=== PATIENT | female | born 1970 | race Hispanic/Latino ===

== ENCOUNTER 2019-09-09 03:46 | Emergency (ER) | payer OTHER ==
[2019-09-09 04:22] LABS: BASOPHILS % (AUTO) 0.9 % (0.0-5.0); EOSINOPHILS % (AUTO) 3.1 % (0.0-8.0); HEMATOCRIT 40.3 % (36-48); LYMPHOCYTES % (AUTO) 48.4 % (21.0-51.0); MEAN CORPUSCULAR HEMOGLOBIN 31.1 pg (27.0-33.0); MEAN CORPUSCULAR HGB CONC 33.8 g/dL (32.0-36.0); MEAN CORPUSCULAR VOLUME 92.1 fL (79-99); MONOCYTES % (AUTO) 8.8 % (3.0-13.0); NEUTROPHILS % (AUTO) 38.8 % (40.0-77.0); PLATELET COUNT (AUTO) 251 K/uL (130-400); RED BLOOD CELL COUNT(AUTO) 4.38 MIL/uL (4.00-5.50); RED CELL DISTRIBUTION WIDTH 13.1 % (11.0-15.5); WHITE BLOOD COUNT (AUTO) 7.6 K/uL (4.8-10.8)
[2019-09-09 04:32] LABS: CREATININE 0.9 mg/dL (0.5-1.5)
[2019-09-09 04:37] LABS: BILIRUBIN,TOTAL 0.1 mg/dL (0.2-1.0); INR 0.94 (0.85-1.15); PARTIAL THROMBOPLASTIN TIME 31.6 SEC (26.3-35.5); PROTHROMBIN TIME 9.9 SEC (9.6-11.6); TOTAL PROTEIN, SERUM 8.3 g/dL (6.0-8.3)
[2019-09-09 05:22] LABS: APPEARANCE,URINE Clear (CLEAR); BILIRUBIN,URINE Negative (NEGATIVE); COLOR,URINE Yellow (YELLOW); GLUCOSE, URINE (UA) Negative (NEGATIVE); KETONES,URINE Negative (NEGATIVE); LEUKOCYTE ESTERASE ,URINE Small (NEGATIVE); NITRATE,URINE Negative (NEGATIVE); OCCULT BLOOD,URINE Moderate (NEGATIVE); PH,URINE 5.5 (5.0-8.0); PROTEIN,URINE Negative (NEGATIVE); UROBILINOGEN,URINE 0.2 mg/dL (0.2-1.0)
[2019-09-09 06:33] LABS: BACTERIA,URINE Few /HPF (None Seen); YEAST,URINE BUDDING Few /HPF (None Seen)
== END 2019-09-09 08:01 | disposition home or self-care (01) ==
LOC: EDH 03:46
DX: R55 Syncope and collapse (principal); R00.2 Palpitations; R42 Dizziness and giddiness; M54.2 Cervicalgia; I10 Essential (primary) hypertension; Z90.49 Acquired absence of other specified parts of digestive tract
CPT/HCPCS: 36415; 70450; 71046; 72125; 80053; 81001; 82550; 84484; 85025; 85610; 85730; 93005

== ENCOUNTER 2023-11-20 20:42 | Emergency (ER) | payer BC ==
[~2023-11-20] VITALS: Ht 157.5 cm; Wt 70.3 kg
[~2023-11-20 20:42] MED LIST: ASPI-1005 PO; ATOR20TA65 PO; CLOP-31 PO; DOXY100T2 PO; FAMO20TA8 PO
[2023-11-20 20:44] VITALS: BP 149/89; PULSE 78; RESP 20
[2023-11-20] MEDS ORDERED: CLIN-141 PO (21:12)
[2023-11-20] MEDS ORDERED: IBUP-2077 PO (21:12)
[2023-11-20] MEDS: CLINDAMYCIN 150 MG CAP PO STA (21:13)
[2023-11-20] MEDS: IBUPROFEN 800 MG TAB PO ONE (21:14)
== END 2023-11-20 21:23 | disposition home or self-care (01) ==
LOC: EDH 20:42
DX: K02.9 Dental caries, unspecified (principal); R60.9 Edema, unspecified; I10 Essential (primary) hypertension; E11.9 Type 2 diabetes mellitus without complications; Z79.82 Long term (current) use of aspirin; Z79.899 Other long term (current) drug therapy; Z90.710 Acquired absence of both cervix and uterus; Z98.890 Other specified postprocedural states

== ENCOUNTER 2024-02-01 20:51 | Emergency (ER) | payer BC ==
[~2024-02-01] VITALS: Ht 162.6 cm; Wt 85.3 kg
[~2024-02-01 20:51] MED LIST changes: +CLIN-141 PO; +IBUP-2077 PO
[2024-02-01 23:10] LABS: BASOPHILS # (AUTO) 0.07 K/uL (0.00-0.20); BASOPHILS % (AUTO) 0.8 % (0.0-5.0); EOSINOPHILS % (AUTO) 4.5 % (0.0-8.0); HEMATOCRIT 36.4 % (36-48); IMMATURE GRANULOCYTE ABSOLUTE 0.04 K/uL (0-1); LYMPHOCYTES # (AUTO) 3.4 K/uL (1.0-4.8); LYMPHOCYTES % (AUTO) 38.9 % (21.0-51.0); MEAN CORPUSCULAR HEMOGLOBIN 30.8 pg (27.0-33.0); MEAN CORPUSCULAR HGB CONC 33.8 g/dL (32.0-36.0); MONOCYTES % (AUTO) 11.2 % (3.0-13.0); NEUTROPHILS # (AUTO) 3.9 K/uL (1.8-7.7); NEUTROPHILS % (AUTO) 44.1 % (40.0-77.0); PLATELET COUNT (AUTO) 232 K/uL (130-400); RED CELL DISTRIBUTION WIDTH 12.6 % (11.0-15.5); WHITE BLOOD COUNT (AUTO) 8.8 K/uL (4.8-10.8)
[2024-02-01 23:16] LABS: CREATININE 0.7 mg/dL (0.5-1.0); POTASSIUM 3.8 mmol/L (3.5-5.1)
[2024-02-01 23:21] LABS: ALBUMIN 3.9 g/dL (3.5-5.0); BILIRUBIN,TOTAL 0.2 mg/dL (0.2-1.0); TOTAL PROTEIN, SERUM 7.9 g/dL (6.0-8.3)
[2024-02-01 23:23] LABS: INR <= 0.93 (0.85-1.15); PROTHROMBIN TIME 10.3 SEC (9.6-11.6)
[2024-02-01 23:24] LABS: PARTIAL THROMBOPLASTIN TIME 34.5 SEC (26.3-35.5)
[2024-02-02] MEDS ORDERED: IBUP-1493 PO (01:22)
[2024-02-02] MEDS: KETOROLAC 30MG VIAL (30MG/ML) IVP ONE (01:25)
[2024-02-02] MEDS: METOCLOPRAMIDE 10 MG/2 ML VIAL IVP ONE (01:25)
[2024-02-02 02:26] VITALS: BP 136/66; PULSE 78; RESP 20; O2SAT 97
[2024-02-02] MEDS: DiphenhydrAMINE HCL 50 MG/ML VIAL IV ONE (02:28)
== END 2024-02-02 02:35 | disposition home or self-care (01) ==
LOC: EDH 20:51
DX: R42 Dizziness and giddiness (principal); R51.9 Headache, unspecified; I10 Essential (primary) hypertension; Z79.02 Long term (current) use of antithrombotics/antiplatelets; Z79.82 Long term (current) use of aspirin
CPT/HCPCS: 99284; 70450; 71045; 82550; 84484; 80053; 83880; 82140; 85025; 85378; 85610; 85730; 36415; 93005 ×2; 96374; 96375; J1200; J1885; J2765

== ENCOUNTER 2024-09-19 09:44 | Emergency (ER) | payer BC ==
[~2024-09-19] VITALS: Ht 165.1 cm; Wt 68.9 kg
[~2024-09-19 09:44] MED LIST changes: -ASPI-1005 PO; -CLIN-141 PO; -DOXY100T2 PO; +IBUP-1493 PO; -IBUP-2077 PO
[2024-09-19 10:09] LABS: BASOPHILS # (AUTO) 0.05 K/uL (0.00-0.20); BASOPHILS % (AUTO) 0.8 % (0.0-5.0); EOSINOPHILS # (AUTO) 0.22 K/uL (0.00-0.70); EOSINOPHILS % (AUTO) 3.6 % (0.0-8.0); HEMATOCRIT 40.5 % (36-48); IMMATURE GRANULOCYTE ABSOLUTE 0.02 K/uL (0-1); LYMPHOCYTES # (AUTO) 2.2 K/uL (1.0-4.8); LYMPHOCYTES % (AUTO) 35.8 % (21.0-51.0); MEAN CORPUSCULAR HEMOGLOBIN 30.2 pg (27.0-33.0); MEAN CORPUSCULAR HGB CONC 33.6 g/dL (32.0-36.0); MONOCYTES # (AUTO) 0.6 K/uL (0.1-1.0); MONOCYTES % (AUTO) 9.9 % (3.0-13.0); NEUTROPHILS % (AUTO) 49.6 % (40.0-77.0); PLATELET COUNT (AUTO) 282 K/uL (130-400); RED CELL DISTRIBUTION WIDTH 12.7 % (11.0-15.5); WHITE BLOOD COUNT (AUTO) 6.1 K/uL (4.8-10.8)
[2024-09-19 10:19] LABS: CREATININE 0.6 mg/dL (0.5-1.0); POTASSIUM 3.6 mmol/L (3.5-5.1)
[2024-09-19 10:29] LABS: BILIRUBIN,TOTAL 0.3 mg/dL (0.2-1.0); TOTAL PROTEIN, SERUM 8.1 g/dL (6.0-8.3)
[2024-09-19] MEDS ORDERED: NITROGLYCERIN 0.4 MG SL TAB SL PRN (10:30)
--- NOTE | 2024-09-19 10:33 | HMCIMG ---
CHEST 1VW HISTORY: Chest pain COMPARISON: 02/01/2024 FINDINGS: A frontal projection of the chest was obtained. No acute pulmonary infiltrates is seen. The heart is normal in size. Prominent interstitial markings are seen. Degenerative changes are seen. No evidence of aortic calcification is seen. IMPRESSION: 1. No acute pulmonary infiltrate is seen.
--- NOTE | 2024-09-19 10:34 | EKG ---
[facility] Test Date: 2024-09-19 Test Time: 09:53:07 Pat Name: CORNELL BHAT Department: ED Room: Gender: F Adaptive Physical Education Specialist: [id number] : 1970 Requested By: HANK HIDALGO Order Number: [id number] Reading MD: Teto Salas Measurements Intervals [place] Rate: 70 P: 25 MO: 143 QRS: 14 QRSD: 95 T: -11 QT: 416 QTc: 451 Interpretive Statements Sinus rhythm Borderline T abnormalities, diffuse leads Compared to ECG 02/01/2024 22:45:06 T-wave abnormality now present Electronically Signed On 09-19-2024 19:11:49 DATABASE DESIGNER by Teto Salas Please click the below link to view image of tracing.
--- NOTE | 2024-09-19 10:42 | ERN ---
ED Note History of Present Illness Stated Complaint: CP Chief Complaint: Chest Pain Time Seen by MD: 10:01 Dictation: Patient is a 55-year-old female with a history of diabetes type 2 hypertension hyperlipidemia and GERD who presents to the ED for chest pain. Patient states the chest pain started around 6:00 p.m. last night and has been intermittent in nature with some radiation to the back. Patient admits to having some weakness but denies any falls. Patient also states her blood pressure was very elevated last night with with reading in the 190s systolic. She took two amlodipine 5 mg last night which helped. Patient denies any dizziness, shortness of breath, numbness, tingling, or swelling in the legs. Patient states she has some cardiac history and at 1 point was on a Holter monitor but never followed up with Cardiology. Patient does not have a primary care physician and currently receives her dual anti-platelet therapy potassium supplements and cholesterol medications from [facility]. Allergies: Coded Allergies: No Known Allergies (Unverified Allergy, Unknown, 05/28/23) Home Meds Active Scripts Ibuprofen (Motrin/Advil) 800 Mg Tab, 800 MG PO TID, #30 TAB Prov:LA NENA LEAL MD 02/02/24 Clopidogrel Bisulfate (Plavix) 75 Mg Tablet, 75 MG PO DAILY for 30 Days, #30 TAB Prov:DANIELLE APONTE NP 05/31/23 Famotidine (Famotidine) 20 Mg Tablet, 20 MG PO DAILY for 30 Days, #30 TAB Prov:DANIELLE APONTE NP 05/31/23 Atorvastatin Calcium (Atorvastatin Calcium) 20 Mg Tablet, 20 MG PO HS for 30 Da ys, #30 TAB Prov:DANIELLE APONTE NP 05/31/23 Past Medical History Past Medical History: Diabetes-Type II, GERD, High Cholesterol, Hypertension Additional Past Medical Hx: HERNIA Surgical History: Unknown Family History: HTN Social History: ETOH, Lives alone History: Not Applicable Review of System Dictation Constitutional-no chills, weight loss/gain, fever Eyes-no injury, pain, redness and discharge ENT-no injury, pain, swelling Cardiovascular positive for chest pain, palpitations, no edema Respiratory no shortness of breath, cough, wheezing Abdomen/GI-no abdominal pain, diarrhea, constipation, vomiting, nausea Back no injury and pain Genitourinary no injury, bleeding and discharge Musculoskeletal/extremities no injury, deformity Skin no rash, discoloration Neuro-no numbness, tingling, seizures, or tremors, positive for headaches and weakness, Psych-no suicidal ideation, homicidal ideation, hallucinations, depression, anxiety, memory loss Initial Vital Sign VS Vital Signs Date Time Temp Pulse Resp B/P (MAP) Pulse Ox O2 Delivery O2 Flow Rate FiO2 09/19/24 09:51 97.9 75 20 142/95 100 Room Air 0 09/19/24 10:18 21 Physical Exam Dictation General-patient is awake alert and oriented Head/neck-normocephalic, atraumatic Eyes-PERRL, EOMI, vision at baseline Neck-trachea midline, supple, no nuchal rigidity Cardiovascular-RRR, normal S1/S2, no MRG is, no JVD Respiratory-no distress, wheezing, rales, rhonchi Abdomen-no tenderness, guarding, soft, nondistended Skin warm, dry, normal turgor, no rash Musculoskeletal/extremities pulses equal, no cyanosis, no edema Neuro-COA X 4, GCS 15, strength 5/5, CN 2-12 intact Psych-normal behavior, mood and affect normal Results (Laboratory/Radiology) Laboratory/Radiology Laboratory Tests Test 09/19/24 10:00 09/19/24 11:38 White Blood Count 6.1 K/uL (4.8-10.8) Red Blood Count 4.50 MIL/uL (4.00-5.50) Hemoglobin 13.6 g/dL (12.0-16.0) Hematocrit 40.5 % (36-48) Mean Corpuscular Volume 90.0 fL (79-99) Mean Corpuscular Hemoglobin 30.2 pg (27.0-33.0) Mean Corpuscular Hemoglobin Concent 33.6 g/dL (32.0-36.0) Red Cell Distribution Width 12.7 % (11.0-15.5) Platelet Count 282 K/uL (130-400) Mean Platelet Volume 10.4 fL (7.5-10.5) Immature Granulocyte % (Auto) 0.3 % (0-1) Neutrophils (%) (Auto) 49.6 % (40.0-77.0) Lymphocytes (%) (Auto) 35.8 % (21.0-51.0) Monocytes (%) (Auto) 9.9 % (3.0-13.0) Eosinophils (%) (Auto) 3.6 % (0.0-8.0) Basophils (%) (Auto) 0.8 % (0.0-5.0) Neutrophils # (Auto) 3.0 K/uL (1.8-7.7) Lymphocytes # (Auto) 2.2 K/uL (1.0-4.8) Monocytes # (Auto) 0.6 K/uL (0.1-1.0) Eosinophils # (Auto) 0.22 K/uL (0.00-0.70) Basophils # (Auto) 0.05 K/uL (0.00-0.20) Absolute Immature Granulocyte (auto 0.02 K/uL (0-1) Nucleated Red Blood Cells 0.0 % (0.0-0.19) Prothrombin Time 10.4 SEC (9.6-11.6) Prothromb Time International Ratio 0.96 (0.85-1.15) Activated Partial Thromboplast Time 31.9 SEC (26.3-35.5) Sodium Level 135 mmol/L (136-145) L Potassium Level 3.6 mmol/L (3.5-5.1) Chloride Level 100 mmol/L (101-111) L Carbon Dioxide Level 28 mmol/L (21-32) Blood Urea Nitrogen 16 mg/dL (7-18) Creatinine 0.6 mg/dL (0.5-1.0) Glomerular Filtration Rate Calc 107 mL/min (>90) Random Glucose 102 mg/dL (70-105) Total Calcium 9.0 mg/dL (8.5-10.1) Total Bilirubin 0.3 mg/dL (0.2-1.0) Aspartate Amino Transf (AST/SGOT) 15 U/L (10-37) Alanine Aminotransferase (ALT/SGPT) 25 U/L (12-78) Alkaline Phosphatase 92 U/L (50-136) Troponin I High Sensitivity 19 ng/L (4-50) 22 ng/L (4-50) B-Type Natriuretic Peptide 31 pg/mL (0-100) Total Protein 8.1 g/dL (6.0-8.3) Albumin 4.0 g/dL (3.5-5.0) Labs Reviewed?: Yes EKG Comment: EKG obtained 09/19/2024 at 09:53:07 Sinus rhythm HR [address] elevation or depression ED Course ED Course Orders Procedure Category Date Status Time 12 Lead Ekg Tracing- EKG 09/19/24 Complete Technical 09:57 Cbc With Differential LAB 09/19/24 Complete 09:57 Comprehensive LAB 09/19/24 Complete Metabolic Panel 09:57 Troponin I High LAB 09/19/24 Complete Sensitivity 09:57 Bedside Troponin-I LAB.ER 09/19/24 In Process (Poc) 09:57 Chest 1vw RAD 09/19/24 Resulted 09:57 B-Type Natriuretic LAB 09/19/24 Complete Peptide 10:19 Nitroglycerin 0.4mg PHA 09/19/24 In Process Sl Tab (Nitrostat) 10:30 Prothrombin Time With LAB 09/19/24 Complete INR 10:19 Pt And Ptt LAB 09/19/24 Complete 10:19 Troponin I High LAB 09/19/24 Complete Sensitivity 11:18 Current Medications Medications (Trade) Dose Ordered Sig/Devin Route PRN Reason Start Time Stop Time Status Last Admin Dose Admin Nitroglycerin (Nitrostat) 0.4 mg AD PRN SL CHEST PAIN 09/19/24 10:30 10/19/24 10:29 Vital Signs Date Time Temp Pulse Resp B/P (MAP) Pulse Ox O2 Delivery O2 Flow Rate FiO2 09/19/24 12:30 97.9 64 14 118/64 100 Room Air* 0 09/19/24 11:00 97.9 65 14 112/63 100 Room Air* 0 09/19/24 10:18 97.9 63 14 141/83 97 Room Air* 0 09/19/24 09:51 97.9 75 20 142/95 100 Room Air 0 HEART Score Response (Comments) Value History: Low suspicion (0) 0 EKG: Normal 0 Age: 45-65yrs (+1) 1 Risk Factors: 1-2 risk factors (+1) 1 Initial Troponin: Normal limit (0) 0 HEART Score Risk: Low Risk for MACE (1-3) Total 2 CHADS-VASc Score Response (Comments) Value Sex: Female (+1) 1 CHF History: No (0) 0 Hypertension Hx: Yes (+1) 1 Stroke/TIA/Thromboembolism Hx: No (0) 0 Vascular Disease Hx(prior DE, CAD, PAD, etc.): No (0) 0 Diabetes Hx: Yes (+1) 1 Thromboembolism Risk: Low Risk (0-1) Antithrombotic Therapy Recommendations: Oral AntiCoags (2-10) Total 3 Medical Decision Making MDM MDM INITIAL IMPRESSION Initial history and physical concerning for chest pain, palpitations Contributing medical problems: DM II, hyperlipidemia, hypertension I have reviewed the triage nursing notes and vital signs. Initial plan: Laboratory evaluation, EKG, and x-ray DATA REVIEW I have reviewed additional NN, repeat VS, and monitoring where indicated. Heart rate, blood pressure, and O2 saturation are acceptable. [facility] diagnostic results: ED COURSE Interventions: Reassessment: DISPOSITION Final diagnostic impression: Palpitations, GERD I discussed my findings, clinical impression and treatment recommendations with the patient. My final plan for disposition was made based upon -mild risk of complications and potential morbidity of the patient's condition. -Discussion with the patient regarding management options. DX & DISP Disposition: Discharge Departure Impression: Primary Impression: Palpitations Additional Impression: GERD (gastroesophageal reflux disease) Condition: Stable Scripts Pantoprazole Sodium (Protonix) 40 Mg Ectab 1 TAB PO DAILY for 30 Days, #30 TAB 0 Refills Prov: HANK HIDALGO MD 09/19/24 Additional Instructions: You have been reviewed in the emergency department at [facility] after presenting with chest pain. After considering your history, your risk factors, your EKG and your blood test troponins, have been found to be at very low risk less than (1 in 100) of having a major adverse cardiac event (like heart attack) in the near future. In the " low risk" group, the risks of doing further tests and treatment as the inpatient outweighs the benefits. In many patients in the low risk group for the test of any sort or unnecessary, however he should discuss this further with his general practitioner who will understand the medical and personal backgrounds better. Because we have never declared you" no risk" we would suggest. 1 returning for medical review if you have further episodes of chest pain/arm pain or other concerning symptoms like dizziness, collapse, palpitations or shortness of breath. 2. Following up with your local doctor who will consider the need for further testing and will also ensure that any modifiable risk factors you may have for heart disease are optimally managed. Patient will be discharged in stable condition at the moment discharge patient states , no chest pain Referrals: NONE (PCP) AV MOTA MD, LUIS A MD Time of Disposition: 12:26 I have reviewed, & agreed with my scribe's, documentation. (Entered by Matthias Hoff, acting as a scribe for Dr. Hidalgo) I was present and participated in the care of this patient alongside the resident physician. I have reviewed and personally made and improve the management plan that is documented in the note by myself or the resident physician. I acknowledge full responsibility for the patient's management plan. I personally scribed for HANK HIDALGO MD (RICHARD) on 09/19/24 at 12:28. Elec tronically submitted by Matthias Hoff ([email or web address]). LUCINDA MCMAHON MD Sep 19, 2024 10:42 HANK HIDALGO MD Sep 19, 2024 12:28
[2024-09-19 10:53] LABS: INR 0.96 (0.85-1.15); PROTHROMBIN TIME 10.4 SEC (9.6-11.6)
[2024-09-19 10:54] LABS: PARTIAL THROMBOPLASTIN TIME 31.9 SEC (26.3-35.5)
[2024-09-19 12:30] VITALS: BP 118/64; PULSE 64; RESP 14; TEMP 97.9; O2SAT 100
[2024-09-19] MEDS ORDERED: PANT40TA55 PO (12:33)
== END 2024-09-19 12:36 | disposition home or self-care (01) ==
LOC: EDH 09:44
DX: R00.2 Palpitations (principal); K21.9 Gastro-esophageal reflux disease without esophagitis; R07.9 Chest pain, unspecified; E11.9 Type 2 diabetes mellitus without complications; I10 Essential (primary) hypertension; E78.00 Pure hypercholesterolemia, unspecified; Z79.899 Other long term (current) drug therapy; Z79.1 Long term (current) use of non-steroidal anti-inflammatories (NSAID); Z79.02 Long term (current) use of antithrombotics/antiplatelets
CPT/HCPCS: 36415; 71045; 80053; 83880; 84484; 85025; 85610; 85730; 93005